=== PATIENT | female | born 1950 | race Caucasian/White ===

== ENCOUNTER 2016-10-14 11:28 | Outpatient (CLI) | payer OTHER ==
[~2016-10-14 11:28] MED LIST: ATORVASTATIN CA10 MG PO; LISINOPRIL10 MG PO; METFORMIN HCL500 MG PO; NORCO1 TA1 PO; OMEPRAZOLE20 M1 PO; PERCOCET1 TA1 PO; TRAZODONE HCL50 MG PO
--- NOTE | 2016-10-14 12:04 | DIAGNOSTIC IMAGING REPORT ---
PROCEDURE: DEXA BONE DENSITY STUDY CLINICAL INDICATION: OSTEOPOROSIS, BREAST CA ON CHEMO NOW COMPARISON: DEXA 08/06/2011 FINDINGS: LUMBAR SPINE: Bone mineral density 0.845 g/cm2, T score -1.8 osteopenia which represents a 2.3% improvement from the previous study LEFT HIP: Bone mineral density 0.874 g/cm2, T score -0.6 normal which represents a 6.4% decrease from the previous study LEFT FEMORAL NECK: Bone mineral density 0.709 g/cm2, T score -1.3 osteopenia which represents a 3.3% decrease from the previous study FRACTURE RISK CALCULATION ( when applicable): 10-year fracture risk of a major osteoporotic fracture and of a hip fracture not reported because of a prior hip or vertebral fracture (T score greater or equal to -1.0 to: NORMAL) (T score from -1.1 to -2.4: OSTEOPENIA) (T score ess than or equal to -2.5: OSTEOPOROSIS) IMPRESSION: 1. Osteopenia lumbar spine and femoral neck with a 2.3% improvement in the lumbar spine and 3.3% decrease in the femoral neck bone mineral density
== END 2016-10-14 23:00 ==
LOC: XR SRH 11:28
DX: M85.88 Other specified disorders of bone density and structure, other site (principal)